=== PATIENT | male | born 1960 | race Caucasian/White ===

== ENCOUNTER 2017-04-02 13:24 | Emergency (ER) | payer BC ==
[~2017-04-02] VITALS: Ht 172.7 cm; Wt 79.1 kg
[2017-04-02 13:26] VITALS: TEMP 36.7; Ht 172.7 cm; Wt 79.1 kg
--- NOTE | 2017-04-02 13:49 | EMERGENCY ROOM VISIT NOTE ---
History Report prepared by Alpesh: Richard Howard Under the Supervision of: Dr. Rosa M Bautista M.D. First contact with patient: 13:30 Chief Complaint: SHORTNESS OF BREATH Stated Complaint: COLD SYMPTOMS AND SOB Nursing Triage Summary: pt reports he was seen at urgent care sent here for eval of pe went to urgent care for cold sx has hx of pe's History of Present Illness The patient is a 56 year old male who presents to the Emergency Room with complaints of constant shortness of breath beginning a week ago. The patient states that he recently returned from a trip to [facility]. He notes that he has been experiencing SOB since he returned back. He reports that he has been experiencing SOB while running short distances and going up the stairs. He also complains of a cough and lower ribcage pain that began last night during a coughing fit. He denies a fever and ankle swelling. The patient states that he had a PE ten years ago. He notes that he was put on blood thinners for a year. He reports subsequently he went on a long car trip and developed DVT. He was put back on blood thinners by his doctor. The patient is currently not anticoagulated. He states he had a thrombophilia panel performed in years past. Source of History: patient Onset: a weeek ago Position: chest Quality: other (SOB) Timing: constant Associated Symptoms: + cough, No fevers Note: He also complains of lower rib pain. He denies any ankle swelling. Review of Systems See HPI for pertinent positives & negatives. A total of 10 systems reviewed and were otherwise negative. Past Medical & Surgical Medical Problems: (1) DVT (deep venous thrombosis) (2) Pulmonary embolism Family History No pertinent family history stated. Social History Smoking Status: Never Smoker Marital Status: Housing Status: lives with family Occupation Status: employed Current/Historical Medications Scheduled Rivaroxaban (Xarelto Starter Pack 15 & 20 mg), 1 TABS PO BID Allergies Coded Allergies: No Known Allergies (Verified , NONE, 04/02/17) Physical Exam Vital Signs Date Time Temp Pulse Resp B/P (MAP) Pulse Ox O2 Delivery O2 Flow Rate FiO2 04/02/17 16:23 68 16 124/72 98 Room Air 04/02/17 14:56 72 16 131/76 98 Room Air 04/02/17 13:54 64 04/02/17 13:51 98 Room Air 12/23/17 13:46 98 Room Air 04/02/17 13:26 36.7 68 18 138/85 96 Room Air Physical Exam Vital signs reviewed. General: Well-appearing 56 year old male, in no significant distress. HEENT: No scleral icterus, PERRLA, neck supple. Atraumatic. Cardiovascular: Regular rate and rhythm, no extra sounds. Pulmonary: Clear to auscultation bilaterally, normal work of breathing. Abdomen: Soft, nontender, nondistended, positive bowel sounds. Musculoskeletal: Atraumatic, no peripheral edema. Tenderness of right flank to palpation. Neurologic: Patient awake alert and oriented x 3. Skin: Warm, dry, no rash Medical Decision & Procedures ER Provider Diagnostic Interpretation: Radiology results as stated below per my review and radiologist interpretation: CHEST CTA for PULMONARY ARTERIES FINDINGS: Normal caliber thoracic aorta. No evidence for dissection within the ascending aorta or aortic arch. There is inadequate contrast within the descending thoracic aorta to assess for dissection. The liver, spleen, and adrenal glands appear unremarkable. No pleural or pericardial effusions. No mediastinal or hilar lymphadenopathy. No evidence for right-sided heart strain this time. Multiple bilateral pulmonary emboli seen predominantly within the bilateral lower lobe and right middle lobe pulmonary arteries. There is also a linear embolus seen within the distal right main pulmonary artery. No evidence for a central embolus. The pulmonary emboli have increased compared to the 2009 examination. No fractures within the visualized osseous structures. No pneumothorax. The central airways are patent. Small linear scarlike density within the lingula. Stable 4 mm nodule within the left lower lobe. Therefore, this is considered to be benign. Groundglass density seen within the posterior lower lobes favor mild dependent change. A few small linear densities within the posterior base of the right lower lobe have improved. This may represent residual scarring. IMPRESSION: Multiple bilateral acute pulmonary emboli. This has progressed compared to the 2009 examination. No evidence for right-sided heart strain at this time. Electronically signed by: Sher Harris M.D. 04/02/2017 3:22 PM Laboratory Results 04/02/17 13:45 Red Blood Count 5.36, Mean Corpuscular Volume 87.5, Mean Corpuscular Hemoglobin 29.9, Mean Corpuscular Hemoglobin Concent 34.1, Neutrophils (%) (Auto) 59.2, Lymphocytes (%) (Auto) 26.1, Monocytes (%) (Auto) 8.0, Eosinophils (%) (Auto) 5.5, Basophils (%) (Auto) 0.6, Neutrophils # (Auto) 3.99, Lymphocytes # (Auto) 1.76, Monocytes # (Auto) 0.54, Eosinophils # (Auto) 0.37, Basophils # (Auto) 0.04 04/02/17 13:45 Test 04/02/17 13:45 White Blood Count 6.74 K/uL (4.8-10.8) Red Blood Count 5.36 M/uL (4.7-6.1) Hemoglobin 16.0 g/dL (14.0-18.0) Hematocrit 46.9 % (42-52) Mean Corpuscular Volume 87.5 fL (80-100) Mean Corpuscular Hemoglobin 29.9 pg (25-34) Mean Corpuscular Hemoglobin Concent 34.1 g/dl (32-36) Platelet Count 163 K/uL (130-400) Neutrophils (%) (Auto) 59.2 % Lymphocytes (%) (Auto) 26.1 % Monocytes (%) (Auto) 8.0 % Eosinophils (%) (Auto) 5.5 % Basophils (%) (Auto) 0.6 % Neutrophils # (Auto) 3.99 K/uL (1.4-6.5) Lymphocytes # (Auto) 1.76 K/uL (1.2-3.4) Monocytes # (Auto) 0.54 K/uL (0.11-0.59) Eosinophils # (Auto) 0.37 K/uL (0-0.5) Basophils # (Auto) 0.04 K/uL (0-0.2) Immature Granulocyte % (Auto) 0.6 % Immature Granulocyte # (Auto) 0.04 K/uL (0.00-0.02) Prothrombin Time 10.3 SECONDS (9.0-12.0) Prothromb Time International Ratio 1.0 (0.9-1.1) Activated Partial Thromboplast Time 26.7 SECONDS (21.0-31.0) Partial Thromboplastin Ratio 1.0 Anion Gap 3.0 mmol/L (3-11) Est Creatinine Clear Calc Drug Dose 76.2 ml/min Estimated GFR () 91.1 Estimated GFR (Non- 78.6 BUN/Creatinine Ratio 15.8 (10-20) Calcium Level 9.3 mg/dl (8.5-10.1) Total Bilirubin 0.9 mg/dl (0.2-1) Direct Bilirubin 0.1 mg/dl (0-0.2) Aspartate Amino Transf (AST/SGOT) 23 U/L (15-37) Alanine Aminotransferase (ALT/SGPT) 39 U/L (12-78) Alkaline Phosphatase 107 U/L (45-117) Total Creatine Kinase 99 U/L (39-308) Creatine Kinase MB 0.9 ng/ml (0.5-3.6) Creatine Kinase MB Ratio (0-3.0) Troponin I < 0.015 ng/ml (0-0.045) Total Protein 7.7 gm/dl (6.4-8.2) Albumin 3.7 gm/dl (3.4-5.0) Laboratory results per my review. Medications Administered Medications (Trade) Dose Ordered Sig/Kody Route Start Time Stop Time Status Last Admin Dose Admin Sodium Chloride 1,000 ml @ 200 mls/hr Q5H STAT IV 04/02/17 14:47 04/02/17 16:56 DC 04/02/17 14:57 200 MLS/HR Heparin Sodium/ Dextrose (Heparin 25,000 Unit/500ml D5W) 25,000 unit STK-MED ONCE .ROUTE 04/02/17 15:38 04/02/17 15:39 DC 04/02/17 15:46 25,000 UNIT Heparin Sodium (Porcine) (Heparin Sq 5000 Unit/0.5ml) 5,000 unit STK-MED ONCE .ROUTE 04/02/17 15:38 04/02/17 15:39 DC 04/02/17 15:45 5,000 UNIT ECG Indication: SOB/dyspnea Rate (beats per minute): 65 Rhythm: normal sinus Findings: RBBB, no acute ischemic change, left axis deviation, no ectopy ED Course 1335: Past medical records reviewed. The patient was evaluated in room B9. A complete history and physical examination was performed. 1523: Heparin Sodium/Dextrose 1 ea N/A 1534: Upon reevaluation, the patient is resting comfortably. I discussed laboratory and radiographic results with him. He verbalized agreement of the treatment plan. The patient will be evaluated for further management and care. 1604: Upon reevaluation, the patient appeared to have improvement of his symptoms. I discussed findings with him. He verbalized agreement of the treatment plan. The patient was discharged home. Medical Decision Differential diagnosis: Etiologies such as infections, reactive airway disease, pneumonia, pneumothorax , COPD, CHF, cardiac ischemia, pulmonary embolism, musculoskeletal, gastrointestinal, as well as others were entertained. This patient was evaluated and appeared to be in no significant distress. IV access was obtained and laboratory work was drawn. Patient was placed on the rv service technician and found be in a normal sinus rhythm. Oxygen saturations have remained stable. CT scan of the chest was performed after the d-dimer was markedly elevated. This study is significant for multiple bilateral PE. Case was discussed with Dr. Carrera of the hospitalist service. He evaluated the patient and felt he could be started on oral anticoagulation. The patient was placed on Xarelto 15 mg twice a day for 21 days. He will follow-up with his PCP within the next week for reevaluation and continuation of medications. Patient was advised to read the handout regarding Xarelto. He will return to the ER for worsening of symptoms or any medical concerns. Medication Reconcilliation Current Medication List: was personally reviewed by me Blood Pressure Screening Patient's blood pressure: Elevated blood pressure Blood pressure disposition: Elevated BP felt to be situational Consults Time Called: 1523 Consulting Physician: Dr. Carrera - Dorie Bell Returned Call: 1534 I reviewed the patient's case with Dorie Vu. He will evaluate the patient for further management. Impression Primary Impression: Bilateral pulmonary embolism Scribe Attestation The scribe's documentation has been prepared under my direction and personally reviewed by me in its entirety. I confirm that the note above accurately reflects all work, treatment, procedures, and medical decision making performed by me. Departure Information Dispostion Home / Self-Care Prescriptions Rivaroxaban (Xarelto Starter Pack 15 & 20 mg) 1 Tab Tab 1 TABS PO BID for 21 Days, #42 TABS Prov: Rosa M Bautista M.D. 04/02/17 Referrals Ronal Aly M.D. (PCP) Forms HOME CARE DOCUMENTATION FORM, IMPORTANT VISIT INFORMATION Patient Instructions My [facility]
[2017-04-02 13:51] VITALS: O2SAT 98
[2017-04-02 14:03] LABS: BASO % 0.6 %; BASO ABS # 0.04 K/uL (0-0.2); COMPLETE YES; EOS % 5.5 %; HEMATOCRIT 46.9 % (42-52); IG% 0.6 %; LYMPH % 26.1 %; LYMPH ABS # 1.76 K/uL (1.2-3.4); MEAN CELL VOLUME 87.5 fL (80-100); MEAN CORPUSCULAR HEMOGLOBIN 29.9 pg (25-34); MEAN CORPUSCULAR HGB CONC 34.1 g/dl (32-36); NEUT % 59.2 %; PLATELET COUNT 163 K/uL (130-400); RED BLOOD COUNT 5.36 M/uL (4.7-6.1); WHITE BLOOD COUNT 6.74 K/uL (4.8-10.8)
[2017-04-02 14:07] LABS: PROTHROMBIN TIME (PATIENT) 10.3 SECONDS (9.0-12.0)
[2017-04-02 14:16] LABS: ALT/SGPT 39 U/L (12-78); AST/SGOT 23 U/L (15-37); BLOOD UREA NITROGEN 17 mg/dl (7-18); BUN/CREATININE RATIO 15.8 (10-20); CALCIUM 9.3 mg/dl (8.5-10.1); CARBON DIOXIDE 31 mmol/L (21-32); CHLORIDE 102 mmol/L (98-107); CREATININE 1.06 mg/dl (0.60-1.40); GLUCOSE 83 mg/dl (70-99); POTASSIUM 4.3 mmol/L (3.5-5.1); SODIUM 136 mmol/L (136-145)
[2017-04-02 14:19] LABS: ALKALINE PHOSPHATASE 107 U/L (45-117)
[2017-04-02] MEDS ORDERED: SODIUM CHLORIDE 0.9% 1000ML 1,000 ML IV STA (14:47)
[2017-04-02] MEDS ORDERED: OPTIRAY 320 IV PRN (15:15)
--- NOTE | 2017-04-02 15:23 | DIAGNOSTIC IMAGING REPORT ---
CHEST CTA for PULMONARY ARTERIES CT DOSE: 406.16 mGy.cm HISTORY: Short of breath. TECHNIQUE: Multiaxial CT images of the chest were performed following the intravenous administration of contrast to evaluate the pulmonary arteries. Maximal intensity projection images were also obtained. A dose lowering technique was utilized adhering to the principles of ALARA. COMPARISON STUDY: Chest CTA 05/24/2008. FINDINGS: Normal caliber thoracic aorta. No evidence for dissection within the ascending aorta or aortic arch. There is inadequate contrast within the descending thoracic aorta to assess for dissection. The liver, spleen, and adrenal glands appear unremarkable. No pleural or pericardial effusions. No mediastinal or hilar lymphadenopathy. No evidence for right-sided heart strain this time. Multiple bilateral pulmonary emboli seen predominantly within the bilateral lower lobe and right middle lobe pulmonary arteries. There is also a linear embolus seen within the distal right main pulmonary artery. No evidence for a central embolus. The pulmonary emboli have increased compared to the 2008 examination. No fractures within the visualized osseous structures. No pneumothorax. The central airways are patent. Small linear scarlike density within the lingula. Stable 4 mm nodule within the left lower lobe. Therefore, this is considered to be benign. Groundglass density seen within the posterior lower lobes favor mild dependent change. A few small linear densities within the posterior base of the right lower lobe have improved. This may represent residual scarring. IMPRESSION: Multiple bilateral acute pulmonary emboli. This has progressed compared to the 2008 examination. No evidence for right-sided heart strain at this time. Electronically signed by: Sher Harris M.D. 04/02/2017 3:22 PM Dictated Date/Time: 04/02/2017 3:16 PM
[2017-04-02] MEDS ORDERED: HEPARIN 25000 UNIT/500 ML D5W ONE (15:38)
[2017-04-02] MEDS ORDERED: HEPARIN SOD 5000 UNIT/0.5 ML CARP ONE (15:38)
[2017-04-02] MEDS ORDERED: RIVA1TAB7 PO (16:10)
[2017-04-02 16:23] VITALS: BP 124/72; PULSE 68; O2SAT 98
[2017-04-02 16:26] LABS: CKMB/CK RATIO 0.9 (0-3.0)
--- NOTE | 2017-04-02 16:37 | History and Physical ---
History & Physical Date & Time of Service: Apr 02, 2017 at 16:11 Chief Complaint: Cold Symptoms And Sob Primary Care Physician: No Doctor, Assigned History of Present Illness Source: patient, clinic records This is a 56 year old male with a PMH of multiple bilateral PEs and LLE DVT - no longer on anticoagulation - presents for shortness of breath and dyspnea on exertion. He states he went on a trip to [facility] and returned on March 27. He states that since his return he is having trouble walking up stairs and walking far distances. He has had multiple pulmonary embolisms in 2008 -- he was initially placed on Lovenox and then transitioned to Coumadin. He was on this for about one year. States he developed another blood clot in the leg and was put on Coumadin for one more year, but then this was stopped. Hypercoag w/ up was done as an outpatient and possibly suggested MTHFR positive. Unsure of when he came off of the Coumadin. He has been doing fine since then with no complaints. On arrival: had a CTA for PE which suggested multiple bilateral PEs. No Right heart strain noted. Hemodynamically stable Currently, saturating well on room air, no chest pain, no shortness of breath +dyspnea on exertion Social History Smoking Status: Never Smoker Marital Status: Occupational Status: employed Immunizations History of Influenza Vaccine: No History of Tetanus Vaccine?: Unknown History of Pneumococcal: No History of Hepatitis B Vaccine: Unknown Multi-Drug Resistant Organisms History of MDRO: No Allergies Coded Allergies: No Known Allergies (Verified , NONE, 04/02/17) Home Medications Scheduled Rivaroxaban (Xarelto Starter Pack 15 & 20 mg), 1 TABS PO BID Review of Systems Constitutional: No fever, No chills Respiratory: + dyspnea on exertion, No cough, No sputum, No wheezing, No shortness of breath, No dyspnea at rest, No hemoptysis Cardiovascular: No chest pain, No orthopnea, No edema, No palpitations Abdomen: No pain, No nausea, No vomiting, No diarrhea, No constipation, No GI bleeding Musculoskeletal: No joint pain, No muscle pain Genitourinary - Male: No hematuria, No dysuria, No urinary frequency, No urinary urgency Neurologic: No weakness, No numbness/tingling, No vertigo, No balance problems Psychiatric: No depression symptoms, No anxiety, No insomnia Endocrine: No fatigue Hematologic / Lymphatic: No abnormal bleeding/bruising Integumentary: No rash Allergic / Immunologic: No environmental allergies, No seasonal allergies Physical Exam Vital Signs Date Time Temp Pulse Resp B/P (MAP) Pulse Ox O2 Delivery O2 Flow Rate FiO2 04/02/17 14:56 72 16 131/76 98 Room Air 04/02/17 13:54 64 04/02/17 13:51 98 Room Air 04/02/17 13:46 98 Room Air 04/02/17 13:26 36.7 68 18 138/85 96 Room Air General Appearance: no apparent distress Head: normocephalic, atraumatic Eyes: normal inspection ENT: hearing grossly normal Neck: supple, no adenopathy Respiratory/Chest: chest non-tender, lungs clear, normal breath sounds, no respiratory distress, no accessory muscle use Cardiovascular: regular rate, rhythm, no edema, no gallop, no JVD, no murmur, normal peripheral pulses Abdomen/GI: non tender, soft Extremities/Musculoskelatal: normal inspection, no calf tenderness, normal capillary refill, no pedal edema, normal range of motion 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, no motor/sensory deficits, alert, normal mood/affect, oriented x 3 Skin: normal color, warm/dry, no rash Lymphatic: no adenopathy Diagnostics Laboratory Results Results Past 24 Hours Test 04/02/17 13:45 Range/Units White Blood Count 6.74 4.8-10.8 K/uL Red Blood Count 5.36 4.7-6.1 M/uL Hemoglobin 16.0 14.0-18.0 g/dL Hematocrit 46.9 42-52 % Mean Corpuscular Volume 87.5 80-100 fL Mean Corpuscular Hemoglobin 29.9 25-34 pg Mean Corpuscular Hemoglobin Concent 34.1 32-36 g/dl Platelet Count 163 130-400 K/uL Neutrophils (%) (Auto) 59.2 % Lymphocytes (%) (Auto) 26.1 % Monocytes (%) (Auto) 8.0 % Eosinophils (%) (Auto) 5.5 % Basophils (%) (Auto) 0.6 % Neutrophils # (Auto) 3.99 1.4-6.5 K/uL Lymphocytes # (Auto) 1.76 1.2-3.4 K/uL Monocytes # (Auto) 0.54 0.11-0.59 K/uL Eosinophils # (Auto) 0.37 0-0.5 K/uL Basophils # (Auto) 0.04 0-0.2 K/uL Immature Granulocyte % (Auto) 0.6 % Immature Granulocyte # (Auto) 0.04 0.00-0.02 K/uL Prothrombin Time 10.3 9.0-12.0 SECONDS Prothromb Time International Ratio 1.0 0.9-1.1 Activated Partial Thromboplast Time 26.7 21.0-31.0 SECONDS Partial Thromboplastin Ratio 1.0 Sodium Level 136 136-145 mmol/L Potassium Level 4.3 3.5-5.1 mmol/L Chloride Level 102 98-107 mmol/L Carbon Dioxide Level 31 21-32 mmol/L Anion Gap 3.0 3-11 mmol/L Blood Urea Nitrogen 17 7-18 mg/dl Creatinine 1.06 0.60-1.40 mg/dl Est Creatinine Clear Calc Drug Dose 76.2 ml/min Estimated GFR () 91.1 Estimated GFR (Non- 78.6 BUN/Creatinine Ratio 15.8 10-20 Random Glucose 83 70-99 mg/dl Calcium Level 9.3 8.5-10.1 mg/dl Total Bilirubin 0.9 0.2-1 mg/dl Direct Bilirubin 0.1 0-0.2 mg/dl Aspartate Amino Transf (AST/SGOT) 23 15-37 U/L Alanine Aminotransferase (ALT/SGPT) 39 12-78 U/L Alkaline Phosphatase 107 45-117 U/L Creatine Kinase MB Ratio 0-3.0 Total Protein 7.7 6.4-8.2 gm/dl Albumin 3.7 3.4-5.0 gm/dl Diagnostic Radiology CHEST CTA for PULMONARY ARTERIES CT DOSE: 406.16 mGy.cm HISTORY: Short of breath. TECHNIQUE: Multiaxial CT images of the chest were performed following the intravenous administration of contrast to evaluate the pulmonary arteries. Maximal intensity projection images were also obtained. A dose lowering technique was utilized adhering to the principles of ALARA. COMPARISON STUDY: Chest CTA 05/24/2008. FINDINGS: Normal caliber thoracic aorta. No evidence for dissection within the ascending aorta or aortic arch. There is inadequate contrast within the descending thoracic aorta to assess for dissection. The liver, spleen, and adrenal glands appear unremarkable. No pleural or pericardial effusions. No mediastinal or hilar lymphadenopathy. No evidence for right-sided heart strain this time. Multiple bilateral pulmonary emboli seen predominantly within the bilateral lower lobe and right middle lobe pulmonary arteries. There is also a linear embolus seen within the distal right main pulmonary artery. No evidence for a central embolus. The pulmonary emboli have increased compared to the 2009 examination. No fractures within the visualized osseous structures. No pneumothorax. The central airways are patent. Small linear scarlike density within the lingula. Stable 4 mm nodule within the left lower lobe. Therefore, this is considered to be benign. Groundglass density seen within the posterior lower lobes favor mild dependent change. A few small linear densities within the posterior base of the right lower lobe have improved. This may represent residual scarring. IMPRESSION: Multiple bilateral acute pulmonary emboli. This has progressed compared to the 2009 examination. No evidence for right-sided heart strain at this time. EKG Normal sinus rhythm Left anterior fascicular block Right bundle branch block Impression Assessment and Plan This is a 56 year old male with a PMH of multiple bilateral PEs and LLE DVT - no longer on anticoagulation - presents for shortness of breath and dyspnea on exertion. Acute Multiple Bilateral PEs I believe patient can be discharged on Xarelto 15mg BID for 21 days, and then 20mg daily. This is his third episode of a DVT or PE - should be on life-long anticoagulation. Hypercoag work-up should be drawn. PESI score obtained = 65, which is class I, very low risk. Should have outpatient work-up with primary care - unfortunately appointments center is currently closed - patient should call [facility] for an appointment. Should obtain outpatient echo and likely will need to see hematology again. Return to ER with worsening chest pain or worsening shortness of breath.
== END 2017-04-02 16:26 | disposition home or self-care (01) ==
LOC: C.EDB 13:25
DX: I26.99 Other pulmonary embolism without acute cor pulmonale (principal); Z86.711 Personal history of pulmonary embolism; Z86.718 Personal history of other venous thrombosis and embolism

== ENCOUNTER 2017-06-16 19:34 | Emergency (ER) | payer BC, OTHER ==
[~2017-06-16] VITALS: Ht 172.7 cm; Wt 81.8 kg
[~2017-06-16 19:34] MED LIST: RIVA1TAB7 PO
[2017-06-16 19:44] VITALS: TEMP 36.8; Ht 172.7 cm; Wt 81.8 kg
[2017-06-16] MEDS ORDERED: ASPIRIN 324 MG CHEW PO STA (20:16)
[2017-06-16] MEDS ORDERED: NITROGLYCERIN 2% OINTMENT 30GM TUBE EXT STA (20:16)
[2017-06-16] MEDS ORDERED: OPTIRAY 320 IV PRN (20:30)
[2017-06-16 21:00] LABS: BASO % 0.6 %; BASO ABS # 0.03 K/uL (0-0.2); EOS % 3.1 %; EOS ABS # 0.15 K/uL (0-0.5); HEMATOCRIT 44.8 % (42-52); HEMOGLOBIN 15.3 g/dL (14.0-18.0); IG# 0.01 K/uL (0.00-0.02); LYMPH % 36.3 %; LYMPH ABS # 1.76 K/uL (1.2-3.4); MEAN CELL VOLUME 87.8 fL (80-100); MEAN CORPUSCULAR HGB CONC 34.2 g/dl (32-36); MEAN PLATELET VOLUME 9.6 fL (7.4-10.4); MONO % 8.7 %; MONO ABS # 0.42 K/uL (0.11-0.59); NEUT % 51.1 %; NEUT ABS # 2.48 K/uL (1.4-6.5); PLATELET COUNT 200 K/uL (130-400); RED CELL DISTRIBUTION WIDTH CV 13.5 % (11.5-14.5); RED CELL DISTRIBUTION WIDTH SD 44.1 fL (36.4-46.3); WHITE BLOOD COUNT 4.85 K/uL (4.8-10.8)
[2017-06-16 21:16] LABS: BLOOD UREA NITROGEN 19 mg/dl (7-18); CALCIUM 9.1 mg/dl (8.5-10.1); CARBON DIOXIDE 31 mmol/L (21-32); GLUCOSE 89 mg/dl (70-99); POTASSIUM 3.9 mmol/L (3.5-5.1); SODIUM 139 mmol/L (136-145)
[2017-06-16 21:22] LABS: CKMB 1.3 ng/ml (0.5-3.6)
--- NOTE | 2017-06-16 21:50 | EMERGENCY ROOM VISIT NOTE ---
History First contact with patient: 19:59 Chief Complaint: RIB PAIN Stated Complaint: PAIN INSIDE RIB CAGE History of Present Illness The patient is a 56 year old male who presents to the Emergency Room with complaints of posterior left-sided rib pain that started yesterday. The patient describes it as a dull, muscle ache. He denies any shortness of breath. Deep inspiration does not make it worse. It does not radiate anywhere. He denies any dizziness, nausea or vomiting. He denies any history of cardiac disease. The patient was diagnosed with bilateral pulmonary emboli in March. He is taking Xarelto as prescribed. He denies any recent illnesses such as cough or fever. The patient just traveled back per car from [place] yesterday. He denies any leg pain. The patient does have a history of DVT in addition to his recent pulmonary emboli. Review of Systems 10 system review performed and negative unless noted in HPI or below Past Medical/Surgical History Medical Problems: (1) DVT (deep venous thrombosis) (2) Pulmonary embolism Social History Smoking Status: Never Smoker Marital Status: Housing Status: lives with family Occupation Status: employed Current/Historical Medications Scheduled Rivaroxaban (Xarelto Starter Pack 15 & 20 mg), 1 TABS PO BID Physical Exam Vital Signs Date Time Temp Pulse Resp B/P (MAP) Pulse Ox O2 Delivery O2 Flow Rate FiO2 06/16/17 22:30 61 18 112/70 95 Room Air 06/16/17 21:18 64 06/16/17 20:36 63 20 123/64 93 Room Air 06/16/17 19:44 36.8 68 18 127/80 96 Room Air Physical Exam VITALS: Vitals are noted on the nurse's note and reviewed by myself. Vital signs stable. GENERAL: 56-year-old male, in no acute distress, nondiaphoretic, well-developed well-nourished. SKIN: The skin was without rashes, erythema, edema, or bruising. HEAD: Normocephalic atraumatic. NECK: Supple without nuchal rigidity. No JVD. HEART: Regular rate and rhythm without murmurs gallops or rubs. No tenderness over the thorax LUNGS: Clear to auscultation bilaterally without wheezes, rales or rhonchi. No accessory muscle use. ABDOMEN: Positive bowel sounds x 4.Soft, MUSCULOSKELETAL: No muscle atrophy, erythema, or edema noted. Strength 5/5 throughout. NEURO: Patient was alert and oriented to person place and time. Normal sensation to touch. No focal neurological deficits. Medical Decision & Procedures ER Provider Diagnostic Interpretation: CTA chest IMPRESSION: 1. No acute aortic pathology or evidence of pulmonary thromboembolic disease. 2. No lobar airspace consolidation or adenopathy of the chest. 3. 5 mm solid nodule of the left lower lobe. The above report was generated using voice recognition software. It may contain grammatical, syntax or spelling errors. Electronically signed by: Rdody Mari M.D. 06/16/2017 10:52 PM Dictated Date/Time: 06/16/2017 10:48 PM The status of this report is Signed. Draft = Not yet reviewed or approved by Radiologist. Signed = Reviewed and approved by Radiologist. <AttendingPhy></AttendingPhy> <FamilyPhy>Keily Schwartz,DO</FamilyPhy> < PrimaryPhy>Keily Schwartz,DO</PrimaryPhy> <UnitNumber>[id number]</UnitNumber> <VisitNumber>[id number]</VisitNumber> <PatientName>LORNA FAROOQ III</ PatientName> <DateOfBirth>1960</DateOfBirth> <Location>[facility]</Location> < ServiceDate>06/16/17</ServiceDate> <MNE>ESINDI</MNE> <OrderingPhy>Angélica Chun PA-C</OrderingPhy> <OrderingPhyMNE>f rep ord dr Laboratory Results 06/16/17 20:25 Red Blood Count 5.10, Mean Corpuscular Volume 87.8, Mean Corpuscular Hemoglobin 30.0, Mean Corpuscular Hemoglobin Concent 34.2, Mean Platelet Volume 9.6, Neutrophils (%) (Auto) 51.1, Lymphocytes (%) (Auto) 36.3, Monocytes (%) (Auto) 8.7, Eosinophils (%) (Auto) 3.1, Basophils (%) (Auto) 0.6, Neutrophils # (Auto) 2.48, Lymphocytes # (Auto) 1.76, Monocytes # (Auto) 0.42, Eosinophils # (Auto) 0.15, Basophils # (Auto) 0.03 06/16/17 20:25 Test 06/16/17 20:25 White Blood Count 4.85 K/uL (4.8-10.8) Red Blood Count 5.10 M/uL (4.7-6.1) Hemoglobin 15.3 g/dL (14.0-18.0) Hematocrit 44.8 % (42-52) Mean Corpuscular Volume 87.8 fL (80-100) Mean Corpuscular Hemoglobin 30.0 pg (25-34) Mean Corpuscular Hemoglobin Concent 34.2 g/dl (32-36) Platelet Count 200 K/uL (130-400) Mean Platelet Volume 9.6 fL (7.4-10.4) Neutrophils (%) (Auto) 51.1 % Lymphocytes (%) (Auto) 36.3 % Monocytes (%) (Auto) 8.7 % Eosinophils (%) (Auto) 3.1 % Basophils (%) (Auto) 0.6 % Neutrophils # (Auto) 2.48 K/uL (1.4-6.5) Lymphocytes # (Auto) 1.76 K/uL (1.2-3.4) Monocytes # (Auto) 0.42 K/uL (0.11-0.59) Eosinophils # (Auto) 0.15 K/uL (0-0.5) Basophils # (Auto) 0.03 K/uL (0-0.2) RDW Standard Deviation 44.1 fL (36.4-46.3) RDW Coefficient of Variation 13.5 % (11.5-14.5) Immature Granulocyte % (Auto) 0.2 % Immature Granulocyte # (Auto) 0.01 K/uL (0.00-0.02) Anion Gap 4.0 mmol/L (3-11) Est Creatinine Clear Calc Drug Dose 67.3 ml/min Estimated GFR () 78.4 Estimated GFR (Non- 67.7 BUN/Creatinine Ratio 15.7 (10-20) Calcium Level 9.1 mg/dl (8.5-10.1) Total Creatine Kinase 95 U/L (39-308) Creatine Kinase MB 1.3 ng/ml (0.5-3.6) Creatine Kinase MB Ratio 1.4 (0-3.0) Troponin I < 0.015 ng/ml (0-0.045) Medications Administered Medications (Trade) Dose Ordered Sig/Kody Route Start Time Stop Time Status Last Admin Dose Admin Aspirin (Aspirin Chew) 324 mg NOW STAT PO 06/16/17 20:16 06/16/17 20:18 DC 06/16/17 20:36 324 MG Nitroglycerin (Nitroglycerin 2% Oint) 1 inch ONE STAT EXT 06/16/17 20:16 06/16/17 20:19 DC 06/16/17 20:37 1 INCH ECG Per My Interpretation Indication: chest pain Rate (beats per minute): 60 Rhythm: normal sinus Findings: RBBB, other (Left anterior fascicular block) Change: no significant change ED Course Patient was seen and examined Vital signs including blood pressure were reviewed medications list was verified with patient Labs were obtained, and a saline lock was established The patient declined pain medication Imaging was performed The case was also discussed with my supervising physician who is in agreement with my plan The patient was reassessed. He was resting comfortably. We discussed his results. He voiced understanding. I reviewed discharge instructions the patient. They voiced understanding and had no further questions. Medical Decision Differential diagnosis: Acute myocardial infarction, cardiac arrhythmia, anemia , thyroid abnormality, pneumothorax, pneumonia, bronchitis, pericarditis, electrolyte imbalance, musculoskeletal pain, PE This patient is a 56-year-old male that presents to the emergency department with posterior rib pain, very similar in presentation to when the patient had a pulmonary embolus diagnosed 3 months ago. On exam, he was comfortable in appearance. His lungs were clear. I was fairly concerned given the history that he could have a new PE, which is why I ordered a CT scan. This was negative for acute PE. No pneumonia. Mild coronary artery disease was noted. EKG is unchanged when compared to previous EKG. No signs of acute ischemia. His troponin is negative. I believe he is stable to be discharged home with close follow-up. I advised the patient to undergo a stress test as an outpatient. He voiced understanding, and will call his primary care physician in the morning for a follow-up appointment. He agrees to return immediately to the emergency department with any new, worsening or concerning symptoms This chart was completed in part utilizing [employer] Voice Recognition software. Attempts were made to minimize the grammatical errors, random word insertions, pronoun errors and incomplete sentences. Any formal questions or concerns about the content, text or information contained within the body of this dictation should be directly addressed to the provider for clarification. Medication Reconcilliation Current Medication List: was personally reviewed by me Blood Pressure Screening Patient's blood pressure: Normal blood pressure Impression Primary Impression: Left sided chest pain Departure Information Dispostion Home / Self-Care Condition GOOD Referrals Keily Schwartz, (PCP) Jenaro Wall, DO Patient Instructions My [facility] Additional Instructions You have been evaluated in the emergency department for left back/chest pain. A CAT scan was performed. No new PE was noted. It did show mild coronary artery disease. Please continue current medications as prescribed Please call your primary care physician in the morning. I would recommend further testing such as a stress test if the symptoms continue. A number to the assembling inspector has been provided. Please do not hesitate to return to the emergency department with any new, worsening or concerning symptoms; especially, worsening pain, difficulty breathing, palpitations or lightheadedness. It was a pleasure participating in your care today Work Instructions Return To Work: 2 days
--- NOTE | 2017-06-16 22:53 | DIAGNOSTIC IMAGING REPORT ---
(CHEST FOR PE) ANGIO WITH CT DOSE: 400.45 mGy.cm HISTORY: 56 years-old Male presents with acute left-sided atypical chest pain TECHNIQUE: Multiple CTA images of the chest were obtained after the intravenous administration of 94 ml Optiray 320. Coronal and sagittal MIPS were obtained from the axial data set and were submitted for review. A dose lowering technique was utilized adhering to the principles of ALARA. COMPARISON: CTA of the chest 04/02/2017. FINDINGS: CTA: The left heart structures are not well opacified. No aortic aneurysm or dissection identified. Heart is normal in size without pericardial effusion. Reflux of contrast is noted into the IVC and hepatic veins. Mild coronary arterial disease. The pulmonary arterial tree is opacified to the level of the subsegmental branches and demonstrates no focal filling defects to suggest pulmonary thromboembolic disease. Ill-defined linear filling defect within a subsegmental branch of the right lower lobe, image 91 series 4 is favored to be artifactual. CT CHEST: No dominant thyroid nodule. No pathologic adenopathy identified. There is no pneumothorax or pleural effusion. Mild dependent subsegmental bibasilar atelectasis. 5 mm solid noncalcified pulmonary nodule of the left lower lobe. Central airways are patent. No acute abnormality of the imaged upper abdomen. Soft tissues are unremarkable. The bones appear intact. IMPRESSION: 1. No acute aortic pathology or evidence of pulmonary thromboembolic disease. 2. No lobar airspace consolidation or adenopathy of the chest. 3. 5 mm solid nodule of the left lower lobe. The above report was generated using voice recognition software. It may contain grammatical, syntax or spelling errors. Electronically signed by: Roddy Mari M.D. 06/16/2017 10:52 PM Dictated Date/Time: 06/16/2017 10:48 PM
[2017-06-16] MEDS ORDERED: MULT-513 PO (23:04)
[2017-06-16] MEDS ORDERED: DOXYCYCLINE PO (23:04)
[2017-06-16] MEDS ORDERED: OMEG10007 PO (23:04)
[2017-06-16] MEDS ORDERED: RIVA1TAB4 PO (23:04)
[2017-06-16 23:15] VITALS: PULSE 63; O2SAT 95
[2017-06-16 23:28] VITALS: BP 121/76
== END 2017-06-16 23:32 | disposition home or self-care (01) ==
LOC: C.EDB 19:35 → C.EDA 23:32
DX: R07.9 Chest pain, unspecified (principal); I45.10 Unspecified right bundle-branch block; Z79.01 Long term (current) use of anticoagulants; Z86.711 Personal history of pulmonary embolism; Z86.718 Personal history of other venous thrombosis and embolism